=== PATIENT | female | born 1945 | race Caucasian/White ===

== ENCOUNTER 2017-09-15 12:36 | Inpatient (IN) | payer BC, OTHER ==
[~2017-09-15] VITALS: Ht 160 cm; Wt 131.1 kg
[2017-09-15 13:57] LABS: Urine Bacteria NONE SEEN /hpf (None Seen); Urine Blood Negative /uL (Negative); Urine Mucus FEW (None Seen); Urine WBC 6 /hpf (0 - 5)
[2017-09-15 14:37] LABS: Basophils # (auto) 0 uL; Basophils % (auto) 0.2 % (0.0-2.0); Eosinophils # (auto) 0 uL; Eosinophils % (auto) 0.2 % (0.0-7.0); Hematocrit 35.8 % (36.0-46.0); Lymphocytes # (auto) 0.9 uL; Lymphocytes % (auto) 8.8 % (10.0-50.0); Mean Corpuscular Hemoglobin 31.1 pg (28.0-32.0); Mean Corpuscular Hgb Conc. 33.5 g/dL (32.0-36.0); Monocytes # (auto) 0.6 uL; Monocytes % (auto) 6.6 % (0.0-12.0); Neutrophils # (auto) 8.2 uL; Neutrophils % (auto) 84.2 % (37.0-80.0); Platelet Count (auto) 152 10^3/uL (140-450); Red Blood Cells 3.85 10^6/uL (4.0-5.20); Red Cell Distribution Width 13.8 % (11.8-14.3); White Blood Cell 9.7 10^3/uL (4.4-10.8)
[2017-09-15 14:50] LABS: INR 0.97 (0.9-1.15); Partial Thromboplastin Time 20.8 sec (23.78-33.04); Prothrombin Time 10.4 sec (9.27-12.13)
[2017-09-15 15:06] LABS: Anion Gap 11 (5-15); Carbon Dioxide 23 mmol/L (21-32); Chloride 103 mmol/L (98-107); Glucose 103 mg/dL (74-106); Potassium 3.5 mmol/L (3.5-5.1); Sodium 137 mmol/L (136-145)
[2017-09-15 15:07] LABS: Alanine Aminotransferase 17 U/L (13-56); Albumin 2.6 g/dL (3.4-5.0); Alkaline Phosphatase 114 U/L (45-117); Aspartate Aminotransferase 23 U/L (15-37); BUN/Creatinine Ratio 20.6; Bilirubin, Total 1.3 mg/dL (0.2-1.0); Blood Urea Nitrogen 33 mg/dL (7-18); GFR African American 41 mL/min; GFR Non-African American 34 mL/min; Total Protein 7.5 g/dL (6.4-8.2)
[2017-09-15 15:08] LABS: Magnesium 2.3 mg/dL (1.6-2.6)
[2017-09-15] MEDS ORDERED: HYDROmorphone HCL 2 MG/ML VL IV PRN (15:45)
[2017-09-15] MEDS ORDERED: DEXTROSE (50%) 50ML SYRG IV PRN (15:45)
[2017-09-15] MEDS ORDERED: HYDROcodone-ACET 5/325MG TAB PO PRN (15:45)
[2017-09-15] MEDS ORDERED: cefTRIAXone 1GM/10ml IVPUSH 10 ML IV ONE ×3 (15:45→17:15)
[2017-09-15] MEDS ORDERED: methylPREDNISolone SOD SUCC 40 MG/ML VL IV ONE (15:45)
[2017-09-15] MEDS ORDERED: ONDANSETRON HCL 4 MG/2 ML VIAL IV PRN (15:45)
[2017-09-15] MEDS: InsuLIN REG 1unit/0.01ml Soln (100units/ml) SC SCH ×2 (17:00→22:48)
[2017-09-15] MEDS ORDERED: ACETAMINOPHEN 325 MG TAB PO ONE (17:15)
[2017-09-15] MEDS ORDERED: SODIUM CHLORIDE 0.9% 1,000 ML IV ONE (17:15)
[2017-09-15] MEDS: ACCU-CHEK COMFORT CURVE STRIP VI SCH ×2 (17:33→22:36)
[2017-09-15 21:10] VITALS: BP 133/65
[2017-09-15] MEDS: methylPREDNISolone SOD SUCC 40 MG/ML VL IV SCH (22:35)
[2017-09-15] MEDS: GABAPENTIN 300 MG CAP PO SCH (22:35)
[2017-09-15 23:31] VITALS: BP 133/65
[2017-09-16] MEDS ORDERED: FURO20TA3 PO ×2 (02:57→11:58)
[2017-09-16 05:36] VITALS: BP 141/63
[2017-09-16] MEDS: GABAPENTIN 300 MG CAP PO SCH ×2 (06:42→14:00)
[2017-09-16] MEDS: ACCU-CHEK COMFORT CURVE STRIP VI SCH ×2 (06:42→12:51)
[2017-09-16] MEDS: InsuLIN REG 1unit/0.01ml Soln (100units/ml) SC SCH ×2 (06:43→12:51)
[2017-09-16 06:52] LABS: Basophils # (auto) 0 uL; Basophils % (auto) 0.1 % (0.0-2.0); Eosinophils # (auto) 0 uL; Hematocrit 34.7 % (36.0-46.0); Hemoglobin 11.6 g/dL (12.2-16.2); Lymphocytes # (auto) 0.6 uL; Mean Corpuscular Hemoglobin 30.9 pg (28.0-32.0); Mean Corpuscular Hgb Conc. 33.4 g/dL (32.0-36.0); Mean Corpuscular Volume 92.5 fL (80.0-100.0); Monocytes # (auto) 0.1 uL; Monocytes % (auto) 1.3 % (0.0-12.0); Neutrophils # (auto) 6.3 uL; Neutrophils % (auto) 90.6 % (37.0-80.0); Platelet Count (auto) 152 10^3/uL (140-450); Red Blood Cells 3.75 10^6/uL (4.0-5.20); Red Cell Distribution Width 13.7 % (11.8-14.3)
[2017-09-16 07:09] LABS: BUN/Creatinine Ratio 26.7; Calcium 8.4 mg/dL (8.5-10.1); Potassium 4.5 mmol/L (3.5-5.1)
[2017-09-16 09:00] VITALS: BP 151/73
[2017-09-16] MEDS ORDERED: cefTRIAXone 1GM/10ml IVPUSH 10 ML IV SCH (09:00)
[2017-09-16] MEDS: methylPREDNISolone SOD SUCC 40 MG/ML VL IV SCH (09:59)
[2017-09-16] MEDS ORDERED: LISINOPRIL 10 MG TAB PO SCH (10:00)
[2017-09-16] MEDS ORDERED: HYDR25TA35 PO (11:58)
[2017-09-16] MEDS ORDERED: NAPR500T31 PO (11:58)
[2017-09-16] MEDS ORDERED: POTA99TA15 PO (11:58)
[2017-09-16] MEDS ORDERED: GABA300C10 PO (11:58)
[2017-09-16] MEDS ORDERED: EXEN2INJ SC (11:58)
[2017-09-16] MEDS ORDERED: LEVO50TA7 PO (11:58)
[2017-09-16] MEDS ORDERED: POTA80TA OR (11:58)
[2017-09-16] MEDS ORDERED: GLIP-115 PO (11:58)
[2017-09-16] MEDS ORDERED: TRAM50TA2 PO (11:58)
[2017-09-16] MEDS ORDERED: LISI-646 PO (11:58)
[2017-09-16] MEDS ORDERED: ASPI81TA27 PO (11:58)
[2017-09-16] MEDS ORDERED: FEBU40TA PO (11:58)
[2017-09-16] MEDS ORDERED: SITA100T7 PO (11:58)
[2017-09-16 13:00] VITALS: BP 161/65
[2017-09-16] MEDS ORDERED: methylPREDNISolone SOD SUCC 40 MG/ML VL IV ONE (15:00)
== END 2017-09-16 15:45 | disposition home or self-care (01) | DRG 637 ==
LOC: ER 12:36 → EDBD 12:36 → OVERFLOW 12:37 → CENTRAL 20:55
PROVIDERS: ADMIT Internal Medicine; ATTEND Internal Medicine
DX: E11.649 Type 2 diabetes mellitus with hypoglycemia without coma (principal); G93.41 Metabolic encephalopathy; N39.0 Urinary tract infection, site not specified; E11.22 Type 2 diabetes mellitus with diabetic chronic kidney disease; I12.9 Hypertensive chronic kidney disease with stage 1 through stage 4 chronic kidney disease, or unspecified chronic kidney disease; M10.9 Gout, unspecified; E66.01 Morbid (severe) obesity due to excess calories; N18.3 Chronic kidney disease, stage 3 (moderate); E03.9 Hypothyroidism, unspecified; D64.9 Anemia, unspecified; X58.XXXD Exposure to other specified factors, subsequent encounter; Z88.0 Allergy status to penicillin; S42.302D Unspecified fracture of shaft of humerus, left arm, subsequent encounter for fracture with routine healing; S42.301D Unspecified fracture of shaft of humerus, right arm, subsequent encounter for fracture with routine healing; Z71.89 Other specified counseling
CPT/HCPCS: 36415; 71045; 73120; 80048; 80053; 81001; 82962; 83036; 83605; 83735; 84443; 84484; 84550; 85025; 85610; 85730; 87040; 87077; 87086; 87186; 93005; 96374; 96375; J1815

== ENCOUNTER 2017-11-26 11:32 | Inpatient (IN) | payer OTHER ==
[~2017-11-26] VITALS: Ht 160 cm; Wt 145.0 kg
[~2017-11-26 11:32] MED LIST: ASPI81TA27 PO; EXEN2INJ SC; FEBU40TA PO; GABA300C10 PO; HYDR-4296 PO; LEVO50TA7 PO; LISI-646 PO; NAPR500T31 PO; POTA99TA15 PO; TRAM50TA2 PO
[2017-11-26] MEDS ORDERED: FUROSEMIDE 40 MG/4 ML VIAL IV ONE (12:00)
[2017-11-26 12:32] LABS: Basophils # (auto) 0.1 uL; Basophils % (auto) 1.1 % (0.0-2.0); Eosinophils # (auto) 0.2 uL; Eosinophils % (auto) 3.8 % (0.0-7.0); Hemoglobin 11.3 g/dL (12.2-16.2); Lymphocytes # (auto) 1.5 uL; Lymphocytes % (auto) 24.8 % (10.0-50.0); Mean Corpuscular Hemoglobin 31.8 pg (28.0-32.0); Mean Corpuscular Hgb Conc. 34.2 g/dL (32.0-36.0); Mean Corpuscular Volume 92.9 fL (80.0-100.0); Monocytes # (auto) 0.5 uL; Monocytes % (auto) 8.1 % (0.0-12.0); Neutrophils # (auto) 3.8 uL; Neutrophils % (auto) 62.2 % (37.0-80.0); Nucleated Red Blood Cells % 0.1 %; Platelet Count (auto) 107 10^3/uL (140-450); Red Blood Cells 3.56 10^6/uL (4.0-5.20); Red Cell Distribution Width 15.1 % (11.8-14.3); White Blood Cell 6.1 10^3/uL (4.4-10.8)
[2017-11-26 12:49] LABS: Alanine Aminotransferase 13 U/L (13-56); Albumin 3.3 g/dL (3.4-5.0); Anion Gap 10 (5-15); Aspartate Aminotransferase 15 U/L (15-37); Blood Urea Nitrogen 12 mg/dL (7-18); Calcium 8.4 mg/dL (8.5-10.1); Carbon Dioxide 23 mmol/L (21-32); Chloride 111 mmol/L (98-107); GFR African American 70 mL/min; GFR Non-African American 58 mL/min; Glucose 96 mg/dL (74-106); Magnesium 2.1 mg/dL (1.6-2.6); Potassium 3.9 mmol/L (3.5-5.1); Sodium 144 mmol/L (136-145)
[2017-11-26 12:54] LABS: Alkaline Phosphatase 77 U/L (45-117); Bilirubin, Total 1.1 mg/dL (0.2-1.0); Total Protein 6.6 g/dL (6.4-8.2)
[2017-11-26] MEDS ORDERED: NITROGLYCERIN 0.4 MG SL TAB SL PRN (14:30)
[2017-11-26] MEDS ORDERED: DEXTROSE (50%) 50ML SYRG IV PRN (14:30)
[2017-11-26] MEDS ORDERED: HYDROcodone-ACET 5/325MG TAB PO PRN ×2 (14:30→15:00)
[2017-11-26] MEDS ORDERED: MORPHINE SULF INJ 2 MG/ML SYRINGE 1ML IV PRN ×2 (14:30)
[2017-11-26] MEDS ORDERED: TEMAZEPAM 15 MG CAP PO PRN (14:30)
[2017-11-26] MEDS ORDERED: LACTULOSE 20Gm/30ML SOLN PO PRN (14:30)
[2017-11-26] MEDS ORDERED: ACETAMINOPHEN 500 MG TAB PO PRN (14:30)
[2017-11-26] MEDS ORDERED: PROMETHAZINE HCL 25 MG/ML 1ML IV PRN (14:30)
[2017-11-26] MEDS ORDERED: LISINOPRIL 20 MG TAB PO ONE (15:00)
[2017-11-26] MEDS ORDERED: PANTOPRAZOLE 40 MG TAB PO ONE (15:00)
[2017-11-26] MEDS ORDERED: traMADol HCL 50 MG TAB PO PRN (15:00)
[2017-11-26] MEDS: hydrALAZINE HCL 25 MG TAB PO SCH (15:03)
[2017-11-26 16:10] VITALS: BP 148/65
[2017-11-26] MEDS: InsuLIN REG 1unit/0.01ml Soln (100units/ml) SC SCH ×2 (17:00→21:47)
[2017-11-26] MEDS ORDERED: GLIP2.5T28 PO (17:09)
[2017-11-26] MEDS ORDERED: ATOR10TA PO (17:09)
[2017-11-26] MEDS: ACCU-CHEK COMFORT CURVE STRIP VI SCH ×2 (17:29→21:47)
[2017-11-26 18:06] VITALS: BP 160/74
[2017-11-26 21:01] VITALS: BP 160/74
[2017-11-26 21:51] VITALS: BP 185/93
[2017-11-26] MEDS: GABAPENTIN 300 MG CAP PO SCH (21:55)
[2017-11-26] MEDS: ASPirin-EC 81 mg tab PO SCH (21:55)
[2017-11-26] MEDS: CARVEDILOL 3.125 MG TAB PO SCH (21:56)
[2017-11-26] MEDS ORDERED: ENOXAPARIN SOD 40 MG/0.4 ML SYRINGE SC SCH (22:00)
[2017-11-26] MEDS: ENOXAPARIN SOD 120 MG/0.8 ML SYRINGE SC SCH (22:00)
[2017-11-26] MEDS: SODIUM CHLOR 0.9% PF (SALINE LOCK) 10ML VIAL/SYR IV SCH (22:00)
[2017-11-26] MEDS: LORazepam 0.5 MG TAB PO PRN (22:35)
[2017-11-26] MEDS ORDERED: cloNIDine HCL 0.1 MG TAB PO ONE (23:00)
[2017-11-27 04:47] VITALS: BP 116/62
[2017-11-27 06:00] LABS: Cholesterol 78 mg/dL (< 200); HDL Cholesterol 42 mg/dL (40-59); LDL Cholesterol 39 mg/dL (< 100); Triglycerides 93 mg/dL (< 150)
[2017-11-27] MEDS: ACCU-CHEK COMFORT CURVE STRIP VI SCH ×4 (06:29→21:56)
[2017-11-27] MEDS: SODIUM CHLOR 0.9% PF (SALINE LOCK) 10ML VIAL/SYR IV SCH ×3 (06:30→21:56)
[2017-11-27] MEDS: InsuLIN REG 1unit/0.01ml Soln (100units/ml) SC SCH ×4 (06:30→21:56)
[2017-11-27] MEDS: LEVOTHYROXINE SODIUM 50 MCG TAB PO SCH (06:34)
[2017-11-27] MEDS: HYDROmorphone HCL 2 MG/ML VL IV PRN ×5 (07:40→19:29)
[2017-11-27 08:28] VITALS: BP 150/62
[2017-11-27] MEDS ORDERED: POTASSIUM CHL 20 Meq TABLET PO SCH (10:00)
[2017-11-27] MEDS ORDERED: ENALAPRIL MALEATE 2.5 MG TAB PO SCH (10:00)
[2017-11-27] MEDS ORDERED: FUROSEMIDE 40 MG/4 ML VIAL IV SCH (10:00)
[2017-11-27] MEDS: NITROGLYCERIN 0.2MG/HR TOPICAL PATCH TD SCH (10:36)
[2017-11-27] MEDS: LISINOPRIL 20 MG TAB PO SCH (10:37)
[2017-11-27] MEDS: ENOXAPARIN SOD 120 MG/0.8 ML SYRINGE SC SCH (10:37)
[2017-11-27] MEDS: PANTOPRAZOLE 40 MG TAB PO SCH (10:38)
[2017-11-27] MEDS: ASPirin-EC 81 mg tab PO SCH (10:38)
[2017-11-27] MEDS: hydrALAZINE HCL 25 MG TAB PO SCH (10:38)
[2017-11-27] MEDS: CARVEDILOL 3.125 MG TAB PO SCH ×2 (10:39→21:55)
[2017-11-27] MEDS: LORazepam 0.5 MG TAB PO PRN (10:45)
[2017-11-27] MEDS ORDERED: LORazepam 2MG/ML-1ML VIAL IV PRN (11:00)
[2017-11-27] MEDS ORDERED: IOHEXOL 350 MG/ML 100ML IJ ONE (11:56)
[2017-11-27] MEDS ORDERED: MEPERIDINE HCL (25 MG/ML) 1ML VIAL IV ONE (12:45)
[2017-11-27 13:33] VITALS: BP 154/72
[2017-11-27] MEDS ORDERED: FUROSEMIDE 40 MG/4 ML VIAL IV ONE (15:30)
[2017-11-27 16:29] VITALS: BP 155/88
[2017-11-27] MEDS: RIVAROXABAN 20 MG TAB PO SCH (18:00)
[2017-11-27 21:18] VITALS: BP 160/80
[2017-11-27] MEDS: FUROSEMIDE 40 MG/4 ML VIAL IV SCH (21:54)
[2017-11-27] MEDS: POTASSIUM CHL 20 Meq TABLET PO SCH (21:54)
[2017-11-27] MEDS: GABAPENTIN 300 MG CAP PO SCH (21:55)
[2017-11-28 04:52] VITALS: BP 125/51
[2017-11-28 06:01] LABS: BUN/Creatinine Ratio 12.7; Calcium 8.4 mg/dL (8.5-10.1); Potassium 3.6 mmol/L (3.5-5.1)
[2017-11-28] MEDS: SODIUM CHLOR 0.9% PF (SALINE LOCK) 10ML VIAL/SYR IV SCH ×2 (06:22→14:00)
[2017-11-28] MEDS: LEVOTHYROXINE SODIUM 50 MCG TAB PO SCH (06:37)
[2017-11-28] MEDS: InsuLIN REG 1unit/0.01ml Soln (100units/ml) SC SCH ×3 (06:38→17:00)
[2017-11-28] MEDS: ACCU-CHEK COMFORT CURVE STRIP VI SCH ×3 (06:38→17:09)
[2017-11-28 09:18] VITALS: BP 129/60
[2017-11-28] MEDS: FUROSEMIDE 40 MG/4 ML VIAL IV SCH (09:36)
[2017-11-28] MEDS: CARVEDILOL 3.125 MG TAB PO SCH (09:38)
[2017-11-28] MEDS: POTASSIUM CHL 20 Meq TABLET PO SCH (09:38)
[2017-11-28] MEDS: hydrALAZINE HCL 25 MG TAB PO SCH (09:38)
[2017-11-28] MEDS: PANTOPRAZOLE 40 MG TAB PO SCH (09:39)
[2017-11-28] MEDS: NITROGLYCERIN 0.2MG/HR TOPICAL PATCH TD SCH (09:39)
[2017-11-28] MEDS: LISINOPRIL 20 MG TAB PO SCH (09:39)
[2017-11-28] MEDS ORDERED: ASPirin-EC 81 mg tab PO SCH (10:00)
[2017-11-28] MEDS ORDERED: PATIENTS OWN MEDICATION (xarelto 20 MG) PO SCH (10:00)
[2017-11-28 12:48] VITALS: BP 152/71
[2017-11-28] MEDS ORDERED: FUROSEMIDE 40 MG/4 ML VIAL IV SCH (17:15)
[2017-11-28 17:21] VITALS: BP 145/64
[2017-11-28] MEDS: RIVAROXABAN 20 MG TAB PO SCH (17:33)
== END 2017-11-28 19:52 | disposition home or self-care (01) | DRG 291 ==
LOC: ER 11:32 → EDBD 11:32 → TELE 11:33 → TELE-WESTW 17:37
PROVIDERS: ADMIT Internal Medicine; ATTEND Hospitalist
PROC: 5A09357 Assistance with Respiratory Ventilation, Less than 24 Consecutive Hours, Continuous Positive Airway Pressure (ICD-10-PCS; principal; 2017-11-26)
DX: I13.0 Hypertensive heart and chronic kidney disease with heart failure and stage 1 through stage 4 chronic kidney disease, or unspecified chronic kidney disease (principal); I50.43 Acute on chronic combined systolic (congestive) and diastolic (congestive) heart failure; J96.01 Acute respiratory failure with hypoxia; L03.818 Cellulitis of other sites; E66.2 Morbid (severe) obesity with alveolar hypoventilation; L03.119 Cellulitis of unspecified part of limb; Z68.43 Body mass index [BMI] 50.0-59.9, adult; I48.91 Unspecified atrial fibrillation; E03.9 Hypothyroidism, unspecified; E11.22 Type 2 diabetes mellitus with diabetic chronic kidney disease; E78.5 Hyperlipidemia, unspecified; I70.0 Atherosclerosis of aorta; M10.9 Gout, unspecified; D63.8 Anemia in other chronic diseases classified elsewhere; I70.90 Unspecified atherosclerosis; N18.9 Chronic kidney disease, unspecified; Z79.01 Long term (current) use of anticoagulants; Z80.1 Family history of malignant neoplasm of trachea, bronchus and lung; Z82.49 Family history of ischemic heart disease and other diseases of the circulatory system; Z83.3 Family history of diabetes mellitus; Z85.118 Personal history of other malignant neoplasm of bronchus and lung; Z98.42 Cataract extraction status, left eye; Z90.49 Acquired absence of other specified parts of digestive tract; Z98.51 Tubal ligation status; Z88.0 Allergy status to penicillin; Z79.899 Other long term (current) drug therapy; Z79.82 Long term (current) use of aspirin; Z87.81 Personal history of (healed) traumatic fracture
CPT/HCPCS: 36415; 71045; 71275; 80048; 80053; 80061; 82550; 82962; 83036; 83735; 83880; 84443; 84484; 85025; 85379; 85652; 86141; 93005; 93306; 93970; 94660; 96374